=== PATIENT | female | born 1950 | race Caucasian/White ===

== ENCOUNTER 2018-02-17 09:41 | Outpatient (CLI) | payer MEDICARE | END 2018-02-17 09:42 | disposition home or self-care (01) | LOC: BICMAMMO 09:41 | PROVIDERS: ATTEND Family Medicine | DX: Z12.31 Encounter for screening mammogram for malignant neoplasm of breast (principal) | CPT/HCPCS: 77063; 77067 ==

== ENCOUNTER 2020-08-29 09:48 | Outpatient (CLI) | payer MEDICARE ==
--- NOTE | 2020-08-29 10:33 | MMO ---
Bilateral MAMMO Bilat Diag [facility]. CLINICAL HISTORY: Patient is 69 years old and is seen for diagnostic exam. The patient has no family history of breast cancer. The patient has no personal history of cancer. VIEWS: The views performed were: bilateral mediolateral spot compression magnification; bilateral mediolateral with tomosynthesis; and left craniocaudal spot compression magnification. FILMS COMPARED: The present examination has been compared to prior imaging studies performed at [facility] on 03/04/2019 and 08/15/2020, and at [facility] on 03/25/2007 and 02/17/2018. This study has been interpreted with the assistance of computer-aided detection. MAMMOGRAM FINDINGS: The breasts are heterogeneously dense, which could obscure a lesion on mammography. There are benign appearing calcifications seen in both breasts. There are no suspicious masses, suspicious calcifications, or new areas of architectural distortion. IMPRESSION: THERE IS NO MAMMOGRAPHIC EVIDENCE OF MALIGNANCY. A ROUTINE FOLLOW-UP MAMMOGRAM IN 1 YEAR IS RECOMMENDED. THE RESULTS OF THIS EXAM WERE SENT TO THE PATIENT. ACR BI-RADS Category 2 - Benign finding This exam was interpreted in consultation with Dr Tho Winkler who concurs. MAMMOGRAPHY NOTE: 1. A negative mammogram report should not delay a biopsy if a dominant of clinically suspicious mass is present. 2. Approximately 10% to 15% of breast cancers are not detected by mammography. 3. Adenosis and dense breasts may obscure an underlying neoplasm. Reported by: JASON HEATH MD Electonically Signed: [id number]
== END 2020-08-29 09:49 | disposition home or self-care (01) ==
LOC: BICMAMMO 09:48
PROVIDERS: ATTEND Obstetrics & Gynecology
DX: R92.8 Other abnormal and inconclusive findings on diagnostic imaging of breast (principal)
CPT/HCPCS: 77066; G0279

== ENCOUNTER 2021-09-26 10:15 | Outpatient (CLI) | payer MEDICARE | END 2021-09-26 10:16 | disposition home or self-care (01) | LOC: BICMAMMO 10:15 | PROVIDERS: ATTEND Obstetrics & Gynecology | DX: Z12.31 Encounter for screening mammogram for malignant neoplasm of breast (principal) | CPT/HCPCS: 77063; 77067 ==

== ENCOUNTER 2022-11-22 09:36 | Outpatient (CLI) | payer MEDICARE | END 2022-11-22 09:37 | disposition home or self-care (01) | LOC: BICMAMMO 09:36 | PROVIDERS: ATTEND Family Medicine | DX: Z12.31 Encounter for screening mammogram for malignant neoplasm of breast (principal); Z13.820 Encounter for screening for osteoporosis; R05.1 Acute cough; N95.9 Unspecified menopausal and perimenopausal disorder; M85.89 Other specified disorders of bone density and structure, multiple sites | CPT/HCPCS: 71046; 77063; 77067; 77080 ==

== ENCOUNTER 2025-07-08 10:00 | Inpatient (IN) | payer MEDICARE ==
[2025-07-12] MEDS ORDERED: PROPOFOL 20 ML ONE (06:11)
[2025-07-12] MEDS ORDERED: Thrombin 5000 UNITS/5 ML VIAL ONE (06:13)
[2025-07-12] MEDS ORDERED: Rocuronium Bromide 10 MG/ML (10ML VIAL) ONE (06:24)
[2025-07-12] MEDS ORDERED: Lidocaine 1% PF 5 ML VIAL ONE (06:24)
[2025-07-12] MEDS ORDERED: LevoFLOXacin D5W 500 mg (100 mL) BAG ONE (06:33)
[2025-07-12] MEDS ORDERED: Prochlorperazine 10 MG/2 ML VIAL IM PRN (06:53)
[2025-07-12] MEDS ORDERED: PHENYLEPHRINE-NS 100 MCG/ML 10 ML SYRINGE ONE ×2 (08:04→12:06)
[2025-07-12] MEDS ORDERED: Phenylephrine 40 MG/NS 250 ML 250 ML ONE (08:26)
[2025-07-12] MEDS ORDERED: Ondansetron PF 4 MG/2 ML Vial ONE (10:32)
[2025-07-12] MEDS ORDERED: SUGAMMADEX SODIUM 200 MG/2 ML VIAL ONE (11:04)
[2025-07-12] MEDS ORDERED: HYDROmorphone 0.5 MG/0.5 ML SYRINGE ONE (12:10)
[2025-07-12 15:59] LABS: #Basophils Less than 0.03 10x3/uL (0.0-0.2); #Eosinophils Less than 0.03 10x3/uL (0.0-0.7); #Monocytes 0.40 10x3/uL (0.11-0.59); #Neutrophils 12.03 10x3/uL (1.40-6.50); %Basophils 0.1 % (0.0-1.0); %Eosinophils 0.0 % (0.0-10.0); %Lymphocytes 3.7 % (21.0-51.0); %Monocytes 3.1 % (0.0-10.0); %Neutrophils 92.3 % (42.0-75.0); Hematocrit 32.2 % (36.0-47.0); Hemoglobin 11.0 g/dL (12.0-16.0); Mean Corpuscular Hemoglobin 32.1 pg (27.0-31.0); Mean Corpuscular Volume 93.9 fL (78.0-98.0); Platelet Count 247 10x3/uL (130-400); Red Blood Cell (RBC) Count 3.43 mill/uL (4.20-5.40); White Blood Cell (WBC) Count 13.03 10x3/uL (4.8-10.8)
[2025-07-12 16:09] LABS: Anion Gap 19 mmol/L (10-20); BUN (Urea Nitrogen) 15 mg/dL (9.8-20.1); Calc. Creatinine Clearance 55 mL/min (70-130); Calcium 8.7 mg/dL (7.8-10.44); Carbon Dioxide 19 mmol/L (23-31); Chloride 104 mmol/L (98-107); Glucose 211 mg/dL (83-110); Potassium 3.5 mmol/L (3.5-5.1); Sodium 138 mmol/L (136-145)
[2025-07-12] MEDS: Clindamycin/D5W 900 MG in Premix 1 BAG IVPB SCH ×3 (16:55→20:44)
[2025-07-12] MEDS ORDERED: Clindamycin/D5W 900 MG in Premix 1 BAG IVPB SCH (17:00)
[2025-07-12] MEDS: HYDROcodone/Acetaminophen 7.5/325 mg Tablet PO PRN (18:24)
[2025-07-12] MEDS: Pantoprazole 40 MG DR.TAB PO SCH (20:34)
[2025-07-12] MEDS: Benzocaine/Menthol 1 LOZ LOZ PO PRN (20:40)
[2025-07-13] MEDS: HYDROcodone/Acetaminophen 10/325 mg Tablet PO PRN (00:12)
[2025-07-13 03:16] LABS: #Basophils Less than 0.03 10x3/uL (0.0-0.2); #Eosinophils Less than 0.03 10x3/uL (0.0-0.7); #Monocytes 1.02 10x3/uL (0.11-0.59); #Neutrophils 8.75 10x3/uL (1.40-6.50); %Basophils 0.1 % (0.0-1.0); %Eosinophils 0.0 % (0.0-10.0); %Lymphocytes 7.4 % (21.0-51.0); %Monocytes 9.6 % (0.0-10.0); %Neutrophils 82.6 % (42.0-75.0); Hematocrit 27.2 % (36.0-47.0); Hemoglobin 8.9 g/dL (12.0-16.0); Mean Corpuscular Hemoglobin 31.1 pg (27.0-31.0); Mean Corpuscular Volume 95.1 fL (78.0-98.0); Platelet Count 218 10x3/uL (130-400); Red Blood Cell (RBC) Count 2.86 mill/uL (4.20-5.40); White Blood Cell (WBC) Count 10.59 10x3/uL (4.8-10.8)
[2025-07-13 03:42] LABS: Anion Gap 14 mmol/L (10-20); BUN (Urea Nitrogen) 14 mg/dL (9.8-20.1); Calc. Creatinine Clearance 69 mL/min (70-130); Calcium 8.7 mg/dL (7.8-10.44); Carbon Dioxide 23 mmol/L (23-31); Chloride 103 mmol/L (98-107); Glucose 150 mg/dL (83-110); Potassium 4.5 mmol/L (3.5-5.1); Sodium 135 mmol/L (136-145)
[2025-07-13 12:03] LABS: #Basophils Less than 0.03 10x3/uL (0.0-0.2); #Eosinophils Less than 0.03 10x3/uL (0.0-0.7); #Monocytes 0.93 10x3/uL (0.11-0.59); #Neutrophils 8.39 10x3/uL (1.40-6.50); %Basophils 0.1 % (0.0-1.0); %Eosinophils 0.1 % (0.0-10.0); %Lymphocytes 13.1 % (21.0-51.0); %Monocytes 8.6 % (0.0-10.0); %Neutrophils 77.8 % (42.0-75.0); Hematocrit 29.7 % (36.0-47.0); Hemoglobin 9.6 g/dL (12.0-16.0); Mean Corpuscular Hemoglobin 31.1 pg (27.0-31.0); Mean Corpuscular Volume 96.1 fL (78.0-98.0); Platelet Count 243 10x3/uL (130-400); Red Blood Cell (RBC) Count 3.09 mill/uL (4.20-5.40); White Blood Cell (WBC) Count 10.78 10x3/uL (4.8-10.8)
[2025-07-14] MEDS: Acetaminophen 325 MG TAB PO PRN (00:33)
[2025-07-14 06:07] LABS: #Basophils Less than 0.03 10x3/uL (0.0-0.2); #Eosinophils 0.05 10x3/uL (0.0-0.7); #Monocytes 0.84 10x3/uL (0.11-0.59); #Neutrophils 5.53 10x3/uL (1.40-6.50); %Basophils 0.2 % (0.0-1.0); %Eosinophils 0.6 % (0.0-10.0); %Lymphocytes 20.4 % (21.0-51.0); %Monocytes 10.3 % (0.0-10.0); %Neutrophils 68.1 % (42.0-75.0); Hematocrit 25.1 % (36.0-47.0); Hemoglobin 8.0 g/dL (12.0-16.0); Mean Corpuscular Hemoglobin 31.3 pg (27.0-31.0); Mean Corpuscular Volume 98.0 fL (78.0-98.0); Platelet Count 187 10x3/uL (130-400); Red Blood Cell (RBC) Count 2.56 mill/uL (4.20-5.40); White Blood Cell (WBC) Count 8.13 10x3/uL (4.8-10.8)
[2025-07-14] MEDS: Ketorolac Tromethamine 30 MG (1 mL) VIAL IVP SCH (18:58)
[2025-07-14] MEDS: diphenhydrAMINE 25 MG CAP PO PRN (20:00)
[2025-07-15 20:37] LABS: Hematocrit 33.3 % (36.0-47.0); Hemoglobin 11.5 g/dL (12.0-16.0)
[2025-07-15] MEDS: FLU (Fluad Triv) 25-26 (65UP)PF 45 MCG/0.5 ML Syringe IM ONE (21:00)
[2025-07-16] MEDS: Ondansetron PF 4 MG/2 ML Vial IVP PRN (08:11)
[2025-07-17 05:18] VITALS: BMI 42.0
[2025-07-17] MEDS ORDERED: Milk Of Magnesia 30 ML UDCUP PO PRN (14:25)
[2025-07-18 08:15] VITALS: TEMP 97.9
[2025-07-18 10:06] VITALS: BP 151/78
== END 2025-07-18 10:45 | disposition home or self-care (01) | DRG 402 ==
LOC: SURG A 07-12 05:33 → CCU 07-12 18:02 → SURG A 07-13 09:59
PROVIDERS: ADMIT Neurological Surgery; ATTEND Neurological Surgery
PROC: 0SG00AJ Fusion of Lumbar Vertebral Joint with Interbody Fusion Device, Posterior Approach, Anterior Column, Open Approach (ICD-10-PCS; principal; 2025-07-12)
PROC: 0SG0071 Fusion of Lumbar Vertebral Joint with Autologous Tissue Substitute, Posterior Approach, Posterior Column, Open Approach (ICD-10-PCS; 2025-07-12)
PROC: 00NY0ZZ Release Lumbar Spinal Cord, Open Approach (ICD-10-PCS; 2025-07-12)
PROC: 3E03329 Introduction of Other Anti-infective into Peripheral Vein, Percutaneous Approach (ICD-10-PCS; 2025-07-12)
PROC: 3E033XZ Introduction of Vasopressor into Peripheral Vein, Percutaneous Approach (ICD-10-PCS; 2025-07-12)
PROC: 3E0234Z Introduction of Serum, Toxoid and Vaccine into Muscle, Percutaneous Approach (ICD-10-PCS; 2025-07-12)
PROC: 30233N1 Transfusion of Nonautologous Red Blood Cells into Peripheral Vein, Percutaneous Approach (ICD-10-PCS; 2025-07-15)
DX: M48.062 Spinal stenosis, lumbar region with neurogenic claudication (principal); Z88.5 Allergy status to narcotic agent; Z88.0 Allergy status to penicillin; M43.26 Fusion of spine, lumbar region; Z79.899 Other long term (current) drug therapy; Z23 Encounter for immunization
CPT/HCPCS: 36415; 36430; 80048; 85014; 85018; 85025; 86850; 86900; 86901; A4314; C1713; C1889; J0169; J0665; J1100; J1171; J1885; J1956; J2270; J2405; J2550; J2704; J3010; J3373; J3490; J7030; P9016

== ENCOUNTER 2025-07-08 10:33 | Outpatient (CLI) | payer MEDICARE ==
[2025-07-08 12:19] LABS: #Basophils 0.04 10x3/uL (0.0-0.2); #Eosinophils 0.24 10x3/uL (0.0-0.7); #Monocytes 0.39 10x3/uL (0.11-0.59); #Neutrophils 3.03 10x3/uL (1.40-6.50); %Basophils 0.7 % (0.0-1.0); %Eosinophils 4.3 % (0.0-10.0); %Lymphocytes 32.8 % (21.0-51.0); %Monocytes 7.1 % (0.0-10.0); %Neutrophils 54.9 % (42.0-75.0); Hematocrit 40.4 % (36.0-47.0); Hemoglobin 13.4 g/dL (12.0-16.0); Mean Corpuscular Hemoglobin 31.0 pg (27.0-31.0); Mean Corpuscular Volume 93.5 fL (78.0-98.0); Platelet Count 322 10x3/uL (130-400); Red Blood Cell (RBC) Count 4.32 mill/uL (4.20-5.40); White Blood Cell (WBC) Count 5.52 10x3/uL (4.8-10.8)
[2025-07-08 12:36] LABS: Anion Gap 15 mmol/L (10-20); BUN (Urea Nitrogen) 16 mg/dL (9.8-20.1); Calc. Creatinine Clearance 0 mL/min (70-130); Calcium 10.3 mg/dL (7.8-10.44); Carbon Dioxide 26 mmol/L (23-31); Chloride 98 mmol/L (98-107); Glucose 102 mg/dL (83-110); INR-International Normal Ratio 1.0; Potassium 4.0 mmol/L (3.5-5.1); Prothrombin Time 12.8 sec (12.0-14.7); Sodium 135 mmol/L (136-145)
[2025-07-08 12:37] LABS: PTT 31.2 sec (22.9-36.1)
== END 2025-07-08 10:34 | disposition home or self-care (01) ==
LOC: LABBT 10:33
PROVIDERS: ATTEND Neurological Surgery
DX: Z01.812 Encounter for preprocedural laboratory examination (principal); M48.062 Spinal stenosis, lumbar region with neurogenic claudication
CPT/HCPCS: 80048; 85025; 85610; 85730